=== PATIENT | male | born 1945 | race Caucasian/White ===

== ENCOUNTER 2023-12-10 13:46 | Emergency (ER) | payer MEDICARE ==
[2023-12-10] MEDS ORDERED: Lidocaine 2% PF 5 ML VIAL ONE ×2 (14:02→14:03)
== END 2023-12-10 14:52 | disposition home or self-care (01) ==
LOC: BURERS 13:46
DX: L02.11 Cutaneous abscess of neck (principal); I13.0 Hypertensive heart and chronic kidney disease with heart failure and stage 1 through stage 4 chronic kidney disease, or unspecified chronic kidney disease; I50.9 Heart failure, unspecified; N18.30 Chronic kidney disease, stage 3 unspecified; E11.22 Type 2 diabetes mellitus with diabetic chronic kidney disease; Z87.891 Personal history of nicotine dependence
CPT/HCPCS: 10060; J2001